=== PATIENT | male | born 2000 | race Caucasian/White ===

== ENCOUNTER → 2023-04-07 | Outpatient (CLI) | payer BC ==
--- NOTE | 2023-04-07 22:23 | MR ---
EXAMINATION TYPE: MR abdomen wo/w con DATE OF EXAM: 04/07/2023 7:34 PM INDICATION: Patient age:Male; 22 years old; Reason for study: D35.00 BENIGN NEOPLASM OF UNSPECIFIED ADRENAL GLAN; . Benign neoplasm of unspecifie d adrenal gland, high blood pressure COMPARISON: None TECHNIQUE: Multiplanar multi-sequence imaging was performed without contrast. Post contrast imaging was performed. IV Contrast: 11 cc Gadavist FINDINGS: LOWER CHEST: No gross irregularity. ABDOMEN Liver: Unremarkable. Gallbladder and Bile ducts: Unremarkable. Pancreas: Unremarkable. Spleen: Unremarkable. Adrenal glands: There are no adrenal gland masses seen bilaterally. Kidneys: High T2 left renal simple appearing cyst. Stomach and Bowel: Unremarkable as visualized. Peritoneum: No evidence of pneumoperitoneum or free fluid. Vasculature: Unremarkable. No aortic aneurysm. Musculoskeletal: The osseous structures appear intact. Lymph Nodes: No gross evidence for lymphadenopathy. Abdominal wall: Unremarkable. IMPRESSION: No evidence for adrenal gland or intra-abdominal mass.
== END | disposition home or self-care (01) ==
LOC: RADMRIMAIN 18:22
PROVIDERS: ATTEND Internal Medicine
DX: D35.00 Benign neoplasm of unspecified adrenal gland (principal)
CPT/HCPCS: 74183; A9585

== ENCOUNTER → 2023-04-20 | Outpatient (CLI) | payer BC ==
--- NOTE | 2023-04-20 17:36 | US ---
EXAMINATION TYPE: US liver DATE OF EXAM: 04/20/2023 COMPARISON: MR abdomen 04/07/2023 CLINICAL INDICATION: Male, 23 years old with history of R74.01 ELEVATED TRANSAM LEVEL; abnormal labs TECHNIQUE: Multiple sonographic images of the right upper quadrant are obtained. FINDINGS: EXAM MEASUREMENTS: Liver Length: 22.0 cm Gallbladder Wall: 0.1 cm CBD: 0.4 cm Right Kidney: 10.8 x 6.1 x 6.0 cm Pancreas: Head and tail obscured by overlying bowel gas Liver: Increased attenuation, decreased visualization of vessels suggestive of fatty infiltrate. En larged in size. Hypoechoic areas visualized adjacent to GB, possible focal fatty sparing. Gallbladder: wnl Evidence for sonographic Rodriguez's sign: neg CBD: wnl Right Kidney: No hydronephrosis or masses seen The visualized portions of the pancreas are unremarkable. The head and tail is obscured by overlying bowel gas. Hepatomegaly with increased attenuation. Focal fatty sparing adjacent to gallbladder. No c holelithiasis, wall thickening, pericholecystic fluid. Per wire coater, negative sonographic Rodriguez s ign. Common bile duct within normal limits. Right kidney demonstrates no hydronephrosis, nephrolithia sis or masses. IMPRESSION: 1. No acute process. 2. Hepatomegaly with steatosis.
== END | disposition home or self-care (01) ==
LOC: RADUSWWP 17:03
PROVIDERS: ATTEND Internal Medicine
DX: K76.0 Fatty (change of) liver, not elsewhere classified (principal); R16.0 Hepatomegaly, not elsewhere classified; R74.01 Elevation of levels of liver transaminase levels
CPT/HCPCS: 76705

== ENCOUNTER → 2023-04-26 | Outpatient (CLI) | payer OTHER ==
--- NOTE | 2023-04-26 10:23 | US ---
EXAMINATION TYPE: US renal artery duplex complete DATE OF EXAM: 04/26/2023 COMPARISON: NONE CLINICAL INDICATION: Male, 23 years old with history of I10 HTN; HTN limited due to overlying bowel g as MEASUREMENTS: RENAL SIZE: Rt Kidney: 12.3 x 5.4 x 4.1 cm Lt Kidney: 11.8 x 5.9 x 4.8 cm RA/AO RATIO (< 3.5 ) Right: 1.3 Left: 1.6 RA VELOCITY ( < 180 cm/s) Right: 94.8 Left: 133.2 IMPRESSION: 1. No suspicious changes to suggest significant flow-limiting stenosis bilateral renal arteries.
== END | disposition home or self-care (01) ==
LOC: RADUSWWP 07:00
PROVIDERS: ATTEND Internal Medicine
DX: I10 Essential (primary) hypertension (principal)
CPT/HCPCS: 93975

== ENCOUNTER 2023-10-15 09:57 | Emergency (ER) | payer BC, OTHER ==
[2023-10-15 10:10] VITALS: RESP 18; TEMP 98.5
[2023-10-15] MEDS: SODIUM CHLORIDE 0.9% 1,000 ML IV ONE (11:29)
[2023-10-15] MEDS: KETOROLAC 15 MG/ML 1 ML VIAL IVP STA (11:30)
[2023-10-15 11:55] LABS: Basophils # (A) 0.1 k/uL (0-0.2); Basophils % (A) 1 %; Eosinophils # (A) 0.1 k/uL (0-0.7); Eosinophils % (A) 1 %; HCT 43.5 % (39.0-53.0); HGB 15.8 gm/dL (13.0-17.5); Hyperchromasia Slight; Lymphocytes # (A) 1.9 k/uL (1.0-4.8); Lymphocytes % (A) 15 %; MCH 28.9 pg (25.0-35.0); MCHC 36.2 g/dL (31.0-37.0); MCV 79.9 fL (80.0-100.0); Mean Platelet Volume 8.4; Monocytes # (A) 0.6 k/uL (0-1.0); Monocytes % (A) 5 %; Neutrophils # (A) 9.6 k/uL (1.3-7.7); Neutrophils % (A) 77 %; Platelet Count 293 k/uL (150-450); RBC 5.45 m/uL (4.30-5.90); WBC 12.5 k/uL (3.8-10.6)
[2023-10-15 11:59] LABS: ALT 55 U/L (4-49); AST 40 U/L (17-59); African American GFR (CKD) >90 (>60 ml/min/1.73 sqM); Alkaline Phosphatase 71 U/L (38-126); Anion Gap 11 mmol/L; Blood Urea Nitrogen 13 mg/dL (9-20); Calcium 9.8 mg/dL (8.4-10.2); Carbon Dioxide 24 mmol/L (22-30); Chloride 109 mmol/L (98-107); Glucose 98 mg/dL (74-99); Lipase 34 U/L (23-300); Non-African American GFR(CKD) >90 (>60 ml/min/1.73 sqM); Potassium 4.1 mmol/L (3.5-5.1); Sodium 144 mmol/L (137-145); Total Protein 8.4 g/dL (6.3-8.2)
--- NOTE | 2023-10-15 12:23 | CT ---
EXAMINATION TYPE: CT abdomen pelvis w con CT DLP: 1704.7 mGycm, Automated exposure control for dose reduction was used. DATE OF EXAM: 10/15/2023 12:13 PM COMPARISON: None. CLINICAL INDICATION:Male, 23 years old with history of llq pain; LLQ pain. TECHNIQUE: Axial CT abdomen pelvis w con;Sagittal and coronal reformats were created on a separate w orkstation. Contrast used:100 ml mL of Isovue 300 with IV Contrast, (none if empty) Oral contrast used: without Oral Contrast (none if empty) FINDINGS: LOWER CHEST: Unremarkable ABDOMEN LIVER: Unremarkable GALLBLADDER AND BILE DUCTS: Unremarkable. PANCREAS: Unremarkable. SPLEEN: Unremarkable. ADRENAL GLANDS: Unremarkable. KIDNEYS AND URETERS: Mild left hydronephrosis secondary obstructing 3 mm calculus at the ureteropelvi c junction. No right renal calculi or obstructive uropathy. PELVIS BLADDER: Unremarkable REPRODUCTIVE: Unremarkable. ABDOMEN & PELVIS STOMACH AND BOWEL: No evidence of bowel obstruction. PERITONEUM/RETROPERITONEUM: No evidence of pneumoperitoneum or free fluid. VASCULATURE: No evidence of aortic aneurysm. MUSCULOSKELETAL: No acute osseous abnormalities LYMPH NODES: No gross evidence for lymphadenopathy. SOFT TISSUE/ABDOMINAL WALL: Unremarkable IMPRESSION: Mild left hydronephrosis secondary obstructing 3 mm calculus at the ureteropelvic junction.
[2023-10-15 12:26] LABS: Appearance,Urine Clear (Clear); Bilirubin,Urine Negative (Negative); Blood,Urine Moderate (Negative); Color,Urine Light Yellow; Glucose,Urine (UA) Negative (Negative); Ketones,Urine Negative (Negative); Leukocyte Esterase,Urine Negative (Negative); Mucus,Urine Rare /hpf; Nitrite,Urine Negative (Negative); PH, Urine 5.5 (5.0-8.0); Protein,Urine Negative (Negative); RBC,Urine 25 /hpf (0-5); Specific Gravity,Urine 1.023 (1.001-1.035); Urobilinogen,Urine <2.0 mg/dL (<2.0); WBC,Urine 3 /hpf (0-5)
--- NOTE | 2023-10-15 13:35 | ED ---
Abdominal Pain HPI - General Chief Complaint: Abdominal Pain Stated Complaint: abd pain Time Seen by Provider: 10/15/23 10:10 Source: patient Mode of arrival: ambulatory Limitations: no limitations - History of Present Illness Initial Comments: 23-year-old male presents emergency department with left lower quadrant abdominal pain. States that the pain started last night and worsened this morning. He describes it as a sharp shooting sensation. He denies any provocative factors. The pain was so bad this morning that he ended up having an episode of vomiting. No hematemesis. He denies urinary complaints to include dysuria, hematuria or difficulty voiding. He denies diarrhea, constipation, black or bloody stools. No testicular pain or discharge. No scrotal pain. No history of similar in the past. He did not take any medications before coming in. No fevers. No trauma. No other alleviating, precipitating or modifying factors - Related Data Previous Rx's Medication Instructions Recorded Famotidine [Pepcid] 20 mg PO BID #20 tablet 03/18/15 Dicyclomine HCl [Bentyl] 20 mg PO QID #20 tab 03/19/15 HYDROcodone/APAP 5-325MG [Viking 1 tab PO Q6HR PRN 3 Days #12 tab 10/15/23 5-325] Ketorolac [Toradol] 10 mg PO Q8HR #15 tab 10/15/23 Ondansetron Odt [Zofran Odt] 4 mg PO Q8HR PRN #15 tab 10/15/23 Tamsulosin [Flomax] 0.4 mg PO DAILY #7 cap 10/15/23 Allergies Allergy/AdvReac Type Severity Reaction Status Date / Time No Known Allergies Allergy Verified 10/15/23 10:07 Review of Systems ROS Statement: Those systems with pertinent positive or pertinent negative responses have been documented in the HPI. ROS Other: All systems not noted in ROS Statement are negative. Past Medical History Past Medical History: No Reported History History of Any Multi-Drug Resistant Organisms: None Reported Past Surgical History: No Surgical Hx Reported Past Psychological History: No Psychological Hx Reported Smoking Status: Never smoker Past Alcohol Use History: Occasional Past Drug Use History: None Reported General Exam Limitations: no limitations General appearance: alert, in no apparent distress Head exam: Present: atraumatic, normocephalic, normal inspection Eye exam: Present: normal appearance, PERRL, EOMI. Absent: scleral icterus, conjunctival injection, periorbital swelling ENT exam: Present: normal exam, mucous membranes moist Neck exam: Present: normal inspection. Absent: tenderness, meningismus, lymphadenopathy Respiratory exam: Present: normal lung sounds bilaterally. Absent: respiratory distress, wheezes, rales, rhonchi, stridor Cardiovascular Exam: Present: regular rate, normal rhythm, normal heart sounds. Absent: systolic murmur, diastolic murmur, rubs, gallop, clicks GI/Abdominal exam: Present: soft, normal bowel sounds, other (Patient reports that his pain is left lower quadrant however I cannot elicit any pain upon p alpation). Absent: distended, tenderness, guarding, rebound, rigid Extremities exam: Present: normal inspection, full ROM, normal capillary refill. Absent: tenderness, pedal edema, joint swelling, calf tenderness Back exam: Present: normal inspection Neurological exam: Present: alert, oriented X3, CN II-XII intact Psychiatric exam: Present: normal affect, normal mood Skin exam: Present: warm, dry, intact, normal color. Absent: rash Course Vital Signs 10/15/23 10/15/23 10/15/23 10:04 11:06 13:47 Temperature 98.5 F Pulse Rate 86 68 Respiratory 18 18 Rate Blood Pressure 154/87 151/101 103/58 O2 Sat by Pulse 99 98 Oximetry Medical Decision Making - Medical Decision Making Was pt. sent in by a medical professional or institution (, PA, MACHINE FEEDER FLOORPERSON, urgent care, hospital, or senior living...) When possible be specific @ -No Did you speak to anyone other than the patient for history (EMS, parent, family, police, friend...)? What history was obtained from this source @ -No Did you review nursing and triage notes (agree or disagree)? Why? @ -I reviewed and agree with nursing and triage notes Were old charts reviewed (outside hosp., previous admission, EMS record, old EKG, old radiological studies, urgent care reports/EKG's, senior living records)? Report findings @ -No old charts were reviewed Differential Diagnosis (chest pain, altered mental status, abdominal pain women, abdominal pain men, vaginal bleeding, weakness, fever, dyspnea, syncope, headache, dizziness, GI bleed, back pain, seizure, CVA, palpatations, mental health, musculoskeletal)? @ -Differential Abdominal Pain Men: Appendicitis, cholecystitis, diverticulosis, ischemic bowel, pancreatitis, hepatitis, UTI, gastroenteritis, AAA, incarcerated hernia, bowel obstruction, constipation, inflammatory bowel, hepatitis, peptic ulcer disease, splenic infarction, perforated viscus, testicular torsion, this is not meant to be an all-inclusive list EKG interpreted by me (3pts min.). @ -Not done X-rays interpreted by me (1pt min.). @ -None done CT interpreted by me (1pt min.). @ -Yes and demonstrates a left-sided ureteral stone U/S interpreted by me (1pt. min.). @ -None done What testing was considered but not performed or refused? (CT, X-rays, U/S, labs)? Why? @ -None What meds were considered but not given or refused? Why? @ -None Did you discuss the management of the patient with other professionals (professionals i.e. , PA, MACHINE FEEDER FLOORPERSON, lab, RT, psych nurse, sexual assault social worker, health and wellness instructor, teacher, senior officer, case aide)? Give summary @ -No Was smoking cessation discussed for >3mins.? @ -No Was critical care preformed (if so, how long)? @ -No Were there social determinants of health that impacted care today? How? (Homelessness, low income, unemployed, alcoholism, drug addiction, transportation, low edu. Level, literacy, decrease access to med. care, nursing home, rehab)? @ -No Was there de-escalation of care discussed even if they declined (Discuss DNR or withdrawal of care, Hospice)? DNR status @ -No What co-morbidities impacted this encounter? (DM, HTN, Smoking, COPD, CAD, Cancer, CVA, ARF, Chemo, Hep., AIDS, mental health diagnosis, sleep apnea, morbid obesity)? @ -None Was patient admitted / discharged? Hospital course, mention meds given and route, prescriptions, significant lab abnormalities, going to OR and other pertinent info. @ -Upon arrival patient was placed into room 19. Thorough history and physical exam was performed. IV access was established and patient was given a dose of Toradol for pain. Laboratory studies are conducted which demonstrated blood in the patient's urine. CT is performed which confirms left-sided ureterolithiasis. Patient is reevaluated and states that his pain is tolerable at this time. I discussed the diagnosis, differential and treatment options. Patient will be discharged home with prescriptions for Viking and Toradol. Instructed to take the Toradol for pain. He may take Viking for severe pain. Patient will also be placed on Flomax. Given a prescription for Zofran for any nausea. Instructed to strain his urine. Return to the emergency department for any new or worsening symptoms. Patient agreeable to the plan he was discharged in stable condition Undiagnosed new problem with uncertain prognosis? @ -No Drug Therapy requiring intensive monitoring for toxicity (Heparin, Nitro, Insulin, Cardizem)? @ -No Were any procedures done? @ -No Diagnosis/symptom? @ -Acute left lower quadrant abdominal pain, acute ureterolithiasis with hydronephrosis, microscopic hematuria Acute, or Chronic, or Acute on Chronic? @ -Acute Uncomplicated (without systemic symptoms) or Complicated (systemic symptoms)? @ -Complicated Side effects of treatment? @ -No Exacerbation, Progression, or Severe Exacerbation? @ -No Poses a threat to life or bodily function? How? (Chest pain, [place], AR, pneumonia, PE, COPD, DKA, ARF, appy, cholecystitis, CVA, Diverticulitis, Homicidal, Suicidal, threat to staff... and all critical care pts) @ -No - Lab Data Result diagrams: 10/15/23 10:41 10/15/23 10:41 Lab Results 10/15/23 10/15/23 10/15/23 Range/Units 10:41 10:41 10:42 WBC 12.5 H (3.8-10.6) k/uL RBC 5.45 (4.30-5.90) m/uL Hgb 15.8 (13.0-17.5) gm/dL Hct 43.5 (39.0-53.0) % MCV 79.9 L (80.0-100.0) fL MCH 28.9 (25.0-35.0) pg MCHC 36.2 (31.0-37.0) g/dL RDW 14.0 (11.5-15.5) % Plt Count 293 (150-450) k/uL MPV 8.4 Neutrophils % 77 % Lymphocytes % 15 % Monocytes % 5 % Eosinophils % 1 % Basophils % 1 % Neutrophils # 9.6 H (1.3-7.7) k/uL Lymphocytes # 1.9 (1.0-4.8) k/uL Monocytes # 0.6 (0-1.0) k/uL Eosinophils # 0.1 (0-0.7) k/uL Basophils # 0.1 (0-0.2) k/uL Hyperchromasia Slight Sodium 144 (137-145) mmol/L Potassium 4.1 (3.5-5.1) mmol/L Chloride 109 H (98-107) mmol/L Carbon Dioxide 24 (22-30) mmol/L Anion Gap 11 mmol/L BUN 13 (9-20) mg/dL Creatinine 0.63 L (0.66-1.25) mg/dL Est GFR (CKD-EPI)AfAm >90 (>60 ml/min/1.73 sqM) Est GFR (CKD-EPI)NonAf >90 (>60 ml/min/1.73 sqM) Glucose 98 (74-99) mg/dL Calcium 9.8 (8.4-10.2) mg/dL Total Bilirubin 1.0 (0.2-1.3) mg/dL AST 40 (17-59) U/L ALT 55 H (4-49) U/L Alkaline Phosphatase 71 (38-126) U/L Total Protein 8.4 H (6.3-8.2) g/dL Albumin 5.0 (3.5-5.0) g/dL Lipase 34 (23-300) U/L Urine Color Light Yellow Urine Appearance Clear (Clear) Urine pH 5.5 (5.0-8.0) Ur Specific [place] 1.023 (1.001-1.035) Urine Protein Negative (Negative) Urine Glucose (UA) Negative (Negative) Urine Ketones Negative (Negative) Urine Blood Moderate H (Negative) Urine Nitrite Negative (Negative) Urine Bilirubin Negative (Negative) Urine Urobilinogen <2.0 (<2.0) mg/dL Ur Leukocyte Esterase Negative (Negative) Urine RBC 25 H (0-5) /hpf Urine WBC 3 (0-5) /hpf Urine Mucus Rare H (None) /hpf Disposition Clinical Impression: Ureteral stone with hydronephrosis, LLQ pain, Microscopic hematuria Disposition: HOME SELF-CARE Condition: Stable Instructions (If sedation given, give patient instructions): Kidney Stones (ED) Additional Instructions: Please take the Toradol as directed. Use the Viking if you have worsening pain. Use the Zofran for nausea. Take the Flomax daily. Strain all your urine. Return to the emergency department for any new or worsening symptoms to include fever, uncontrolled pain or inability to urinate Prescriptions: Tamsulosin [Flomax] 0.4 mg PO DAILY #7 cap HYDROcodone/APAP 5-325MG [Viking 5-325] 1 tab PO Q6HR PRN 3 Days #12 tab PRN Reason: Pain Ketorolac [Toradol] 10 mg PO Q8HR #15 tab Ondansetron Odt [Zofran Odt] 4 mg PO Q8HR PRN #15 tab PRN Reason: Nausea Is patient prescribed a controlled substance at d/c from ED?: Yes When asked, does pt state using other controlled substances?: No If prescribed controlled substance>3 days was MAPS reviewed?: Prescribed <3 Days If opioid is for acute pain is fill amount 7 days or less?: Yes Referrals: Harish Quinn DO [Primary Care Provider] - 1-2 days rPieto Rowland MD [STAFF PHYSICIAN] - 1-2 days Time of Disposition: 13:44
[2023-10-15 14:13] VITALS: BP 103/58; PULSE 68
== END 2023-10-15 13:52 | disposition home or self-care (01) ==
LOC: EC 09:57
DX: N13.2 Hydronephrosis with renal and ureteral calculous obstruction (principal)
CPT/HCPCS: 36415; 80053; 83690; 85025; 81001; 74177; 99284; 96374; 96361; J1885; Q9967